=== PATIENT | male | born 1950 | race Caucasian/White ===

== ENCOUNTER 2023-02-24 15:18 | Outpatient (REF) | payer MEDICARE, MEDICAID, SELFPAY | END 2023-02-24 15:19 | disposition home or self-care (01) | LOC: HO.BBR 15:18 | PROVIDERS: Visit Provider Nurse Practitioner Family | DX: D75.1 Secondary polycythemia (principal) | CPT/HCPCS: 85018; 99195 ==

== ENCOUNTER 2023-05-26 15:27 | Outpatient (REF) | payer MEDICARE, MEDICAID, SELFPAY | END 2023-05-26 15:28 | disposition home or self-care (01) | LOC: HO.BBR 15:27 | PROVIDERS: Visit Provider Nurse Practitioner Family | DX: D75.1 Secondary polycythemia (principal) | CPT/HCPCS: 85014; 85018; 99195 ==

== ENCOUNTER 2023-08-29 15:20 | Outpatient (REF) | payer MEDICARE, MEDICAID, SELFPAY | END 2023-08-29 15:21 | disposition home or self-care (01) | LOC: HO.BBR 15:20 | PROVIDERS: Visit Provider Nurse Practitioner Family | DX: D75.1 Secondary polycythemia (principal) | CPT/HCPCS: 85014; 85018; 99195 ==

== ENCOUNTER 2023-12-01 15:28 | Outpatient (REF) | payer MEDICARE, MEDICAID, SELFPAY | END 2023-12-01 15:29 | disposition home or self-care (01) | LOC: HO.BBR 15:28 | PROVIDERS: Visit Provider Nurse Practitioner Family | DX: D75.1 Secondary polycythemia (principal) | CPT/HCPCS: 85018; 99195 ==